=== PATIENT | female | born 1970 | race Hispanic/Latino ===

== ENCOUNTER → 2022-10-13 | Outpatient (CLI) | payer OTHER ==
[2022-10-13 11:42] LABS: CREATININE 0.6 mg/dL (0.5-1.5)
== END | disposition home or self-care (01) ==
LOC: LAB 10:45
PROVIDERS: ATTEND Internal Medicine Cardiovascular Disease
DX: I65.23 Occlusion and stenosis of bilateral carotid arteries (principal)
CPT/HCPCS: 36415; 82565; 84520

== ENCOUNTER → 2022-10-18 | Outpatient (CLI) | payer OTHER ==
[~2022-10-18] MED LIST: IOHEXOL 350 MG/ML 100ML INFUS..BTL IV ONE
== END | disposition home or self-care (01) ==
LOC: RAH 08:03
PROVIDERS: ATTEND Internal Medicine Cardiovascular Disease
DX: I65.23 Occlusion and stenosis of bilateral carotid arteries (principal)
CPT/HCPCS: 70498; Q9967